=== PATIENT | female | born 1925 | race Caucasian/White ===

== ENCOUNTER 2016-12-05 05:43 | Inpatient (IN) ==
[2016-12-05] MEDS ORDERED: SODIUM CHLORIDE 0.9% 1,000 ML IV STA (06:35)
[2016-12-05 06:43] LABS: Basophils % 0.3 % (0.0-0.8); Eosinophils # 0.2 10*3/uL (0.0-0.87); Eosinophils % 2.1 % (0.00-10.9); Hematocrit 43.2 VOL% (35.7-47.0); Hemoglobin 14.3 GM/DL (12.0-16.0); Immature Granulocytes % 0.4 %; Immature Granulocytes Absolute 0.05 #; Lymphocytes # 1.5 10*3/uL (1.4-4.0); Mean Corpuscular HGB Conc 33.1 GM/DL (32-36); Mean Corpuscular Hemoglobin 29 PG (27-34); Mean Corpuscular Volume 86.6 FL (87-102); Mean Platelet Volume 9.6 FL (9.6-12.0); Monocytes # 0.8 10*3/uL (0.11-0.8); Monocytes % 7.1 % (1.7-12.7); Neutrophils # 8.6 10*3/uL (1.4-7.4); Neutrophils % 77.1 % (38.7-73.9); Platelet Count 249 T/CUMM (130-400); Red Blood Count 4.99 MC/CUMM (3.8-5.5); Red Cell Distribution Width 15.2 % (9.3-17.3); White Blood Count 11.2 T/CUMM (4-12)
[2016-12-05 06:47] LABS: INR 2.2
[2016-12-05 06:53] LABS: PT Patient Result 24.1 SECS
[2016-12-05 07:07] LABS: Lactic Acid 1.2 MMOL/L (0.4-2.0)
[2016-12-05 07:19] LABS: Albumin 3.8 G/DL (3.4-5.0); Bilirubin,Total 1.1 MG/DL (0.2-1.0); Calcium 9.3 MG/DL (8.5-10.1); Osmolality,Calculated 267.2 MOS/KG (273-304); Potassium 3.9 MMOL/L (3.5-5.1); Total Protein 7.5 G/DL (6.4-8.3); Troponin I Only 0.018 NG/ML (0.00-0.045)
[2016-12-05 08:02] LABS: Apearance,Urine Slightly Hazy (Clear); Bacteria,Urine Occasional /HPF (Few); Bilirubin,Urine Negative (Negative); Blood, Urine Negative (Negative); Glucose,Urine (UA) Negative (Negative); Ketones,Urine Negative (Negative); Nitrite,Urine Positive (Negative); Protein,Urine Negative; RBC,Urine 4 /HPF (0-4); Squamous Epithelial Cell,Urine Occasional /HPF (0-10); Urine Color Yellow (Yellow); Urine Specific Gravity 1.005 (1.001-1.035); Urine Urobilinogen < 2.0 EU/DL (0.2-1.0); WBC,Urine 181 /HPF (0-6)
[2016-12-05] MEDS ORDERED: MORPHINE 2 MG/1 ML SYRINGE IV STA (08:34)
[2016-12-05] MEDS ORDERED: MORPHINE 2 MG/1 ML SYRINGE ONE (08:37)
--- NOTE | 2016-12-05 08:38 | CT Report ---
Referring physician: Corky Millan Exam: CT brain without contrast Date: December 05, 2016 Comparison: CT brain without contrast January 05, 2016 Reason: Status post fall, on anticoagulation The patient is an Emergency Department patient on December 05, 2016. Technique: Axial images of the head were obtained without the use of contrast. Total DLP was 1005.1 mGy*cm. Findings: There is mild to moderate generalized cerebral and cerebellar atrophy/volume loss. Areas of hyperattenuation are also again seen within the cerebral white matter bilaterally. This is nonspecific but is most consistent with chronic microvascular ischemic change. The lateral ventricles are mildly prominent but stable, likely secondary to central atrophy/volume loss. No midline shift is present. There is no evidence of recent intracranial hemorrhage, abnormal mass effect or an acute infarction. No acute osseous process is seen. Prominent calcified plaque is noted at the intracranial carotid arteries and vertebral arteries. The mastoid air cells and visualized paranasal sinuses are clear. Impression: 1. No acute intracranial process is identified. 2. Chronic intracranial findings, similar to before. The CT exam was performed using one or more of the following dose reduction techniques: Automated exposure control and adjustment of the mA and/or kV according to patient size. PROCEDURE INTERPRETED AT [facility] DEPARTMENT OF RADIOLOGY Final Report Signed by: Dr. Brit Arzate
--- NOTE | 2016-12-05 09:04 | CT Report ---
Exam: CT lumbar spine without contrast Date: December 05, 2016 Comparison: MRI lumbar spine April 02, 2010 and March 06, 2015; CT abdomen and pelvis March 10, 2013 Reason: Status post fall, back pain, initial encounter Technique: Axial images of the lumbar spine were obtained without the use of contrast. Sagittal reformatted images were also acquired. Total DLP is 556.5 mGy*cm. Findings: There are mild remote compression fractures at L2 and L3. Minimal at most retropulsion is seen at this levels, and these compression fractures were present on the previous MRI of April 02, 2010. There is also minimal height loss at the superior endplate of L1. This appears stable and could represent a minimal remote compression fracture. There is also a mild remote compression fracture of L4 with kyphoplasty/vertebroplasty change. Some of the cement material extends into the anterior epidural region at the L4 level. There is minimal height loss at the superior endplate of L5, which could represent an indeterminate age compression fracture. No significant retropulsion is seen. There is irregularity of the left aspect of the sacrum, which is concerning for a nondisplaced sacral fracture. Similar findings are seen on the prior CT obtained on March 10, 2013, and this is consistent with a remote nondisplaced fracture, possibly an insufficiency fracture. There is multilevel anterior marginal spurring and calcification of the intervertebral discs. Vacuum disc phenomenon is seen at L5-S1. There is grade 1 anterolisthesis at L4-L5 (0.5 cm). No definite pars interarticularis defects are seen at L4, but there may be a developing pars interarticularis defect on the left at L5. There is also mild levoscoliosis at the lumbar spine and probable diffuse demineralization/osteoporosis. Mild degenerative change is noted at the SI joints. At T12-L1, there is mild posterior marginal spurring related to a remote compression fracture of T12 which is at the edge of the field of view. No spinal canal stenosis or neuroforaminal narrowing is seen. At L1-L2, no spinal canal stenosis or neuroforaminal narrowing is identified. At L2-L3, there is a mild diffuse posterior disc bulge, minimal posterior marginal spurring and mild bilateral facet arthropathy. No spinal canal stenosis or neuroforaminal narrowing is seen. At L3-L4, there is a mild diffuse posterior disc bulge, mild posterior marginal spurring and mild bilateral facet arthropathy. There is also cement material within the anterior epidural region at the L4 level. These findings produce mild overall narrowing of the spinal canal but no significant neuroforaminal narrowing. At L4-L5, there is uncovering of the disc, a diffuse posterior disc bulge, ligamentum flavum hypertrophy with calcification and moderate to severe bilateral facet arthropathy. This produces moderate to severe spinal canal stenosis, minimal left neuroforaminal narrowing and mild right neuroforaminal narrowing. At L5-S1, there is a diffuse posterior disc osteophyte complex and mild bilateral facet arthropathy. No spinal canal stenosis is seen, but there is mild right neuroforaminal narrowing. There is prominence calcified plaque at the visualized arteries, and the abdominal aorta is slightly ectatic. The abdominal aorta is only partially visualized on this study. Impression: 1. There are mild remote compression fractures at L2 and L3 and a remote compression fracture with kyphoplasty/vertebroplasty change at L4. There is also a questionable minimal remote compression fracture at the superior endplate of L1. 2. There is minimal height loss of the superior endplate of L5, which could represent a minimal indeterminate age compression fracture. This is difficult to confirm on the previous studies but is subtle finding. 3. Remote nondisplaced fracture of the left sacrum, possibly an insufficiency fracture. 4. Multilevel degenerative change at the lumbar spine as above with moderate to severe spinal canal stenosis at L4-L5. PROCEDURE INTERPRETED AT [facility] DEPARTMENT OF RADIOLOGY Final Report Signed by: Dr. Brit Arzate
[2016-12-05] MEDS ORDERED: cloNIDine 0.1 MG TABLET PO STA (09:26)
[2016-12-05] MEDS ORDERED: cloNIDine 0.1 MG TABLET ONE (09:27)
[2016-12-05] MEDS ORDERED: LEVOFLOXACIN INJ 500 MG in PREMIX 1 EACH IV STA (09:31)
--- NOTE | 2016-12-05 09:36 | Emergency Department Note ---
Tenzin Vu Brooke, am scribing for, and in the presence of, Corky Millan Jr., MD 06:37. Monty Vu Marvin Jr., MD, personally performed the services described in this documentation, ascribed by Sera Dave in my presence, and it is both accurate and complete 653 . Arrival - Arrival Chief Complaint: Fall Stated Complaint: fell yesterday morning ED Nursing Triage Note: Patient to triage via wc. Patient fell yesterday morning in the bathroom. Patient and family thought that she would be ok. Son states that they had a rough night. Patient is complaining of pain all over. patient states she did hit her head on the door. Patient is on warfin. Patient is complaining of a headache. Mode of Arrival: Wheelchair Limitations: No Limitations Source: Patient, Family (Son), RN Notes Reviewed Time Seen by Provider: 12/05/16 06:27 - History of Present Illness HPI Narrative: Patient is a 89 year old female who presents to the ED following a fall that happened yesterday. Patient was in the bathroom when her legs "gave way" and she hit the floor. She is currently complaining of lower back pain. Son says Patient woke him up "moaning" and complaining of "aching all over." She took her pain medication, [place] 7.5, two hours ago. Patient denies any shortness of breath, chest pain, nausea, or vomiting but says she does have a headache. She has had the headache for a couple of days and states that it is located in the middle of her head. She says she had been eating and drinking good. There are no other complaints. Patient has PMHx of CHF, HTN, PA, depression, vertigo, COPD , pneumonia, bladder problems, GERD, osteoporosis, and back/neck problems. Patient does not smoke cigarettes, drink alcohol, or do any drugs. Onset (ago): day(s) (2) Allergies/Adverse Reactions: Allergies Allergy/AdvReac Type Severity Reaction Status Date / Time promethazine Allergy Unknown/Unable Verified 12/05/16 09:17 to obtain cefdinir AdvReac Unknown/Unable Verified 12/05/16 09:17 to obtain Home Medications: Home Medications Medication Instructions Recorded Confirmed Type Cetirizine HCl [ZyrTEC Cap] 10 mg PO DAILY 03/06/15 01/05/16 History Digoxin [Digox] 125 mcg PO DAILY 03/06/15 01/05/16 History Furosemide 20 mg PO DAILY 03/06/15 01/05/16 History HYDROcodone/ACETAMIN 7.5-325 7.5 - 325 mg PO BID PRN 03/06/15 01/05/16 History [[place] 7.5-325] Levothyroxine Sodium 50 mcg PO DAILY 03/06/15 01/05/16 History Meclizine HCl 25 mg PO TID PRN 03/06/15 01/06/16 History Metoprolol Tartrate 50 mg PO DAILY 03/06/15 01/05/16 History Omeprazole 40 mg PO DAILY 03/06/15 01/05/16 History Potassium Chloride 10 meq PO DAILY 03/06/15 01/05/16 History Warfarin Sodium 4 mg PO DAILY 03/06/15 01/05/16 History HYDROcodone/ACETAMIN 10-325 [[place] 1 tablet PO Q6H PRN #0 tablet 03/11/15 Rx 10-325] Pantoprazole Tab [Protonix Tab] 40 mg PO DAILY@0700 tablet 03/11/15 01/05/16 Rx Warfarin [Coumadin] 5 mg PO DAILY@1800 tablet 03/11/15 01/05/16 Rx cloNIDine TAB [Catapres Tab] 0.1 mg PO BID tablet 03/11/15 01/05/16 Rx hydroCHLOROthiazide 12.5 mg PO DAILY #60 capsule 03/11/15 01/05/16 Rx [Hydrochlorothiazide] predniSONE TAB [PredniSONE] 20 mg PO DAILY #7 tablet 03/11/15 01/05/16 Rx Acetaminophen/Caff/Dihydrocod 1 each PO DAILY 01/05/16 01/05/16 History [Trezix 16-320.5-30 mg Capsule] Tramadol HCl [Tramadol Tab] 50 mg PO BID PRN 01/05/16 01/05/16 History Acetaminophen Tab [Tylenol Tab] 650 mg PO DAILY PRN 01/06/16 01/06/16 History Albuterol Sulfate [Albuterol Neb] 2.5 mg RESP TX TID 01/06/16 01/06/16 History Aspirin [Ecotrin] 325 mg PO DAILY 01/06/16 01/06/16 History Ferrous Sulfate 325 mg PO DAILY 01/06/16 01/06/16 History Mirtazapine [Remeron] 15 mg PO BEDTIME 01/06/16 01/06/16 History Ondansetron Tab [Zofran Tab] 4 mg PO DAILY PRN 01/06/16 01/06/16 History Sertraline [Zoloft] 50 mg PO DAILY 01/06/16 01/06/16 History amLODIPine [Norvasc] 10 mg PO DAILY #30 tablet 01/06/16 Rx valACYclovir [Valtrex] 500 mg PO BID 01/06/16 01/06/16 History Review of System - Review of System 12 point system: reviewed and no additional remarkable complaints except as stated - Review of System Constitutional: Absent: fever Respiratory: Absent: respiratory distress Cardiovascular: Absent: chest pain Gastrointestinal: Absent: nausea, vomiting Musculoskeletal: Present: lower back pain Skin: Absent: rash Neurological: Present: headache (middle) Medical,Surgical,& Family Hx - Medical History Cardio: History of: CHF, Hypertension, PA Psychological: History of: Depression Neurology: History of: Vertigo HEENT: History of: Ear Problem Respiratory: History of: COPD, Pneumonia Genitourinary: History of: Bladder Problem Gastrointestinal: History of: GERD Musculoskeletal: History of: Back/Neck Problems, Osteoporosis - Surgical History Cardiac Surgeries: Sugical HX of: Cardiac Surgery (CABG) Neurologic Surgeries: Patient denies: Neurologic Surgery HEENT Surgeries: Surgical HX of: Eye Surgery (Cataracts removed) Abdominal Surgeries: Surgical HX of: Cholecystectomy Reproductive Surgeries: Surgical HX of;: Hysterectomy Patient denies;: Genitourinary Surgery - Family History Family History: Reports;: Family Cancer (Aunt), Family Diabetes (Uncle), Family Heart Disease (Sister) - Social History Smoking Status: Never smoker Frequency of Alcohol Use: None Type of Drug Use: None Exam Physical Examination: General: Well-developed well-nourished, no apparent distress. Head: Normocephalic, atraumatic. Eyes: PERRLA, EOMI. Nose: No obvious acute deformities or discharge. Mouth: No obvious acute injury. Dry mucous membranes Neck: Full range of motion without obvious pain. No midline tender to palpation. Lymphatic: no significant lymphadenopathy noted. Lungs: Clear to auscultation bilaterally, normal and equal air movement bilaterally, no obvious rales or wheezing. Heart: regular rate and rhythm, no obvious mummers. Abdomen: Soft nontender, nondistended, normal active bowel sounds. Skin: No obivous acute lesions noted Musculoskeletal: No gross deformities. Patient says she hurts all over. No focal tenderness noted. Neurological: No focal findings, cranial nerves II through XII grossly normal. Psychiatric: Appropriate mood.. : Deferred Vital Signs: Vital Signs Temperature 98.5 F 12/05/16 06:34 Pulse Rate 100 H 12/05/16 09:15 Respiratory Rate 20 12/05/16 09:15 Blood Pressure 220/134 12/05/16 09:15 O2 Sat by Pulse Oximetry 100 12/05/16 09:15 Course Course Narrative: Differential diagnosis, fall, over anticoagulated, hip injury, head injury, dehydration, electrolyte abnormalities, urinary tract infection - Reevaluation(s) Reevaluation #1: Nurse says patient and family are requesting something for pain. All results are not back but I will give her a low dose of morphine. Time: 08:34 Reevaluation #2: I discussed this patient with the hospitalist service and they have accepted her for admission. Time: 09:29 Results - Labs CBC & BMP: 12/05/16 06:27 12/05/16 06:27 Lab Results: I have reviewed the patients labs Labs: Laboratory Tests 12/05/16 06:27 WBC 11.2 RBC 4.99 Hgb 14.3 Hct 43.2 MCV 86.6 L MCH 29 MCHC 33.1 RDW 15.2 Plt Count 249 MPV 9.6 Neut % (Auto) 77.1 H Lymph % (Auto) 13.0 L Baxter % (Auto) 7.1 Eos % (Auto) 2.1 Baso % (Auto) 0.3 Neut # (Auto) 8.6 H Lymph # (Auto) 1.5 Baxter # (Auto) 0.8 Eos # (Auto) 0.2 Baso # (Auto) 0.0 Immature Gran % 0.4 Nucleated RBC % 0.0 Immature Gran # 0.05 Nucleated RBCs # 0.00 Laboratory Tests 12/05/16 12/05/16 06:27 06:27 INR 2.2 PT Patient/Control Mix 24.1 Lactic Acid 1.2 Laboratory Tests 12/05/16 06:27 Sodium 134 L Potassium 3.9 Chloride 99 Carbon Dioxide 24 Anion Gap 14.9 BUN 10 Creatinine 0.70 GFR Calculation 71 BUN/Creatinine Ratio 14.00 Glucose 118 H Calculated Osmolality 267.2 L Lactic Acid 1.2 Calcium 9.3 Total Bilirubin 1.10 H AST 16 ALT 16 Alkaline Phosphatase 63 Troponin I 0.018 Total Protein 7.5 Albumin 3.8 Globulin 3.7 H Albumin/Globulin Ratio 1.0 L Laboratory Tests 12/05/16 06:27 Urine Color Yellow Urine Appearance Slightly hazy Urine pH 8.0 Ur Specific [place] 1.005 Urine Protein Negative Urine Glucose (UA) Negative Urine Ketones Negative Urine Blood Negative Urine Nitrate Positive H Urine Bilirubin Negative Urine Urobilinogen < 2.0 H Urine Leukocytes Moderate H Urine RBC 4 Urine WBC 181 Ur Squamous Epith Cells Occasional Urine Bacteria Occasional Ur Culture Indicated? Results to follow - EKG EKG results: interpreted by ERMD (Heart rate 96, mostly narrow complex QRS complexes without obvious acute ST changes. Irregular heart rate, no obvious P waves, atrial fibrillation) - Diagnostic Findings Procedure: CT: report reviewed by me, image reviewed by me (CT head/brain wo con : 1. No acute intracranial process is identified. 2. Chronic intracranial findings, similar to before. CT lumbar spine wo con: 1. There are mild remote compression fractures at L2 and L3 and a remote compression fracture with kyphoplasty/vertebroplasty change at L4. There is also a questionable minimal remote compression fracture at the superior endplate of L1. 2. There is minimal height loss of the superior endplate L5, which could represent a minimal indeterminate age compression fracture. This is difficult to confirm on the previous studies but is subtle finding. 3. Remote nondisplaced fracture of the left sacrum, possibly an insufficiency fracture. 4. Multilevel degenerative change at the lumbar spine as above with moderate to severe spinal canal stenosis at L4-L5.), X-ray: image reviewed by me (Pelvis x-ray per me with no obvious acute fractures) Disposition Clinical Impression: Fall, Atrial fibrillation, Lumbar spinal stenosis, Urinary tract infection, Poorly-controlled hypertension Case discussed with: patient, patient's family Disposition: Still a Patient Condition: Stable Time of Disposition: 09:35
[2016-12-05] MEDS ORDERED: LEVOFLOXACIN INJ 100 ML IV ONE (09:37)
--- NOTE | 2016-12-05 09:55 | EKG Report ---
Stationary ECG Study [facility] Test Date: 12/05/2016 7:19:04 AM Pat Name: JOSE FRANK Department: Room: Gender: F [employer]: : [id number] Requested by: Corky Millan Order Number: [id number] Reading MD: ALETHA RESTREPO Intervals [place] Rate: 96 P: 999 VA: 0 QRS: 19 QRSD: 92 T: -30 QT: 360 QTc: 414 Interpretive Statements ATRIAL FIBRILLATION WITH VENTRICULAR PREMATURE COMPLEX MODERATE VOLTAGE CRITERIA FOR LVH, CONSIDER NORMAL VARIANT ABNORMAL RHYTHM ECG Electronically Signed On 12-06-16 19:05:10 CDT by ALETHA RESTREPO [email or web address]
--- NOTE | 2016-12-05 10:00 | XRay Report ---
Referring Physician: Corky Millan Exam: XR pelvis AP 1 view Date: December 05, 2016 at 7:03 AM Reason: Trauma, pelvic pain Comparison: Left hip x-rays August 09, 2010, CT abdomen and pelvis March 10, 2013 Findings: The patient has a known remote nondisplaced fracture of the left sacrum which is better demonstrated on CT. There is minimal degenerative change at both hips, but no acute fracture, dislocation or osseous destructive process is identified at the pelvis or visualized proximal femurs. Note is made of kyphoplasty/vertebroplasty change at L4. There is scattered arterial calcification. Impression: No acute osseous process is identified at the pelvis. Please see the CT lumbar spine study performed on the same day for further details. PROCEDURE INTERPRETED AT [facility] DEPARTMENT OF RADIOLOGY Final Report Signed by: Dr. Brit Arzate
--- NOTE | 2016-12-05 11:30 | Hospitalist History & Physical ---
<Ludmila Dyer - Last Filed: 12/05/16 11:49> Assessment and Plan (1) Atrial fibrillation Status: Acute Assessment and plan: Rate is controlled; Patient currently on coumadin; INR at 2.2. No evidence of bleed per CT; will restart Coumadin. Current Visit: Yes (2) Lumbar spinal stenosis Status: Acute Assessment and plan: Multiple compression fractures noted on CT; many old in age. Will manage pain; consult PT for evaluation. Patient may need swing bed placement for rehab if no improvement in mobility. Current Visit: Yes History of Present Illness Chief complaint: Left hip pain/lower back History of present illness: This is a very pleasant 89 year old female that presented to the ED at [facility] this morning for evaluation of lower back pain and weakness. The patient have a very impressive medical history significant for hypertension, myocardial infarction, overactive bladder, vertigo, GERD, osteoarthritis, and osteoporsis. She has a surgical history of cholecystectomy, cataract removal, coronary artery bypass graft and cardiac catheterization. The patient reported to the ED with her family. She reports that she sustained a fall on yesterday afternoon. She reports that she was in the bathroom and her "legs gave away". She reports that she really had no desire to come to the hospital; however when she woke up the pain was unbearable. In addition, the patient reports a headache to the middle of her x3 day; which was not been relieved by pain medications. Labs were obtained, which was essentially unremarkable. CT Head benign. CT cervical spine revealed multiple compression fractures old in age and left sacral fracture, and degenerative changes to the lumbar spine. After discussion with both and Dr. Latham, the patient will be admitted to the hospitalist service for continuation of care. Home Medications Medication Instructions Recorded Confirmed Type Digoxin [Digox] 125 mcg PO DAILY 03/06/15 12/05/16 History Levothyroxine Sodium 50 mcg PO DAILY 03/06/15 12/05/16 History Meclizine HCl 25 mg PO BID 03/06/15 12/05/16 History Metoprolol Tartrate 50 mg PO DAILY 03/06/15 12/05/16 History Omeprazole 40 mg PO DAILY 03/06/15 12/05/16 History Potassium Chloride 10 meq PO DAILY 03/06/15 12/05/16 History Warfarin Sodium 4 mg PO MOWEFR 03/06/15 12/05/16 History cloNIDine TAB [Catapres Tab] 0.1 mg PO BID tablet 03/11/15 12/05/16 Rx hydroCHLOROthiazide 12.5 mg PO DAILY #60 capsule 03/11/15 12/05/16 Rx [Hydrochlorothiazide] Acetaminophen/Caff/Dihydrocod 1 each PO DAILY 01/05/16 12/05/16 History [Trezix 16-320.5-30 mg Capsule] Tramadol HCl [Tramadol Tab] 50 mg PO BID PRN 01/05/16 12/05/16 History Acetaminophen Tab [Tylenol Tab] 650 mg PO DAILY PRN 01/06/16 12/05/16 History Albuterol Sulfate [Albuterol Neb] 2.5 mg RESP TX TID 01/06/16 12/05/16 History HYDROcodone/ACETAMIN 5-325 [[place] 1 tablet PO BID PRN 12/05/16 12/05/16 History 5-325] Warfarin Sodium [Warfarin Sodium] 3 mg PO SUTUTHSA 12/05/16 12/05/16 History Allergies Allergy/AdvReac Type Severity Reaction Status Date / Time promethazine Allergy Unknown/Unable Verified 12/05/16 09:17 to obtain cefdinir AdvReac Unknown/Unable Verified 12/05/16 09:17 to obtain Medical,Surgical,& Family Hx - Medical History Cardio: History of: CHF, CAD, Hypertension, [place] Psychological: History of: Depression Neurology: History of: Vertigo HEENT: History of: Ear Problem Endocrine: History of: Dyslipidemia Respiratory: History of: COPD, Pneumonia Genitourinary: History of: Bladder Problem, Problems (incontinence) Gastrointestinal: History of: GERD Musculoskeletal: History of: Back/Neck Problems, Osteoporosis - Surgical History Cardiac Surgeries: Sugical HX of: Cardiac Catheterization, Cardiac Surgery (CABG ) Neurologic Surgeries: Patient denies: Neurologic Surgery HEENT Surgeries: Surgical HX of: Eye Surgery (Cataracts removed) Abdominal Surgeries: Surgical HX of: Cholecystectomy, Colonoscopy, EGD Reproductive Surgeries: Surgical HX of;: Hysterectomy Patient denies;: Genitourinary Surgery - Family History Family History: Reports;: Family Cancer (Aunt), Family Diabetes (Uncle), Family Heart Disease (Sister) - Social History Smoking Status: Never smoker Frequency of Alcohol Use: None Type of Drug Use: None 12 point system: reviewed and no additional remarkable complaints except as stated Exam - Constitutional Vitals: Period Temp Pulse Resp BP Sys/Sanchez Pulse Ox Last 24 Hr 98.1 F 87-94 16-20 168-180/99-107 98-99 General appearance: normal weight, no acute distress - Head Head exam: Present: normal inspection, normocephalic, atraumatic - Eye Eye exam: Present: EOMI. Absent: conjunctival injection, nystagmus Pupils: Present: ASHLIE, normal accommodation - ENT ENT exam: Present: normal exam, normal external ear exam, normal oropharynx - Neck Neck exam: Present: normal inspection. Absent: lymphadenopathy, meningismus, tenderness - Respiratory Respiratory exam: Present: clear to auscultation bilaterally. Absent: accessory muscle use, rales, wheezes - Cardiovascular Cardiovascular exam: Present: irregular rhythm (A-fib). Absent: carotid bruit, diastolic murmur, gallop, JVD, rubs, systolic murmur - GI/Abdominal GI/Abdominal exam: Present: normal bowel sounds, soft - Extremities Exam Extremities exam: Present: normal inspection - Back Exam Back exam: Present: other (painful upon movement and gentle palpation) - Neurological Exam Neurological exam: Present: alert, oriented X3 - Psychiatric Psychiatric exam: Present: normal affect, normal mood - Skin Skin exam: Present: normal color, warm, dry Results - Labs CBC & BMP: 12/05/16 06:27 12/05/16 06:27 Lab Results: I have reviewed the past 24 hour labs Quality Measures - VTE Deep Vein Thrombosis/Pulmonary Embolism Present on Admission: No <Hunter Latham - Last Filed: 12/05/16 14:18> Assessment and Plan (1) Back pain Status: Acute Assessment and plan: As noted in the accompanying notes; I totally agree with the plan of management however I am concerned that the acute pain may be poorly controlled if without are anti-inflammatory agent. Unfortunately this lady is on Coumadin we cannot use nonsteroidal anti-inflammatory medications. She will have to resort to use of systemic steroids. I am starting her on Decadron at least for the next 48 hours to be given IV 2 mg IV every 12 hours. She is not a diabetic will continue to keep an eye on the blood sugars. She should be in the hospital for the next 72 hours. I am going to consult the pain clinic people who know how to come and see her was she is here. This current amplitude of pain is acute following a fall that she sustained at home. It will therefore be treated as such. Been on both hydrocodone acetaminophen and tramadol. Long-term use of tramadol does concern me because of neutral and is interested to have with the other opioids but the long stay obvious byproducts in the system. Is notorious to cause some neurologic coordination and ataxia in the elderly. Current Visit: No History of Present Illness History of present illness: Ms. Carpenter is a 89 year old female Exam - Constitutional Vitals: Period Temp Pulse Resp BP Sys/Sanchez Pulse Ox Last 24 Hr 98.1 F 87-94 16-20 168-180/99-107 98-99 Results - Labs CBC & BMP: 12/05/16 06:27 12/05/16 06:27
[2016-12-05] MEDS ORDERED: ACETAMINOPHEN 325 MG TABLET PO PRN (11:54)
[2016-12-05] MEDS ORDERED: ONDANSETRON 4 MG/2 ML VIAL IV PRN (11:54)
[2016-12-05] MEDS ORDERED: DOCUSATE SODIUM 100 MG CAPSULE PO PRN (11:54)
[2016-12-05] MEDS: SODIUM CHLORIDE 0.9% 1,000 ML IV SCH ×2 (12:39→21:26)
[2016-12-05] MEDS ORDERED: DEXAMETHASONE 4 MG/1 ML VIAL IV ONE (14:30)
[2016-12-05] MEDS ORDERED: WARFARIN 2 MG TABLET ONE (17:59)
[2016-12-05] MEDS ORDERED: WARFARIN 3 MG TABLET PO SCH (18:00)
[2016-12-05] MEDS: ALBUTEROL 2.5 MG/3 ML NEB RESP TX SCH (19:09)
[2016-12-05] MEDS: cloNIDine 0.1 MG TABLET PO SCH (21:18)
[2016-12-05] MEDS: oxyCODONE/ACETAMINOPHEN 5-325 MG TABLET PO PRN (21:18)
[2016-12-06] MEDS: DEXAMETHASONE 4 MG/1 ML VIAL IV SCH ×2 (04:16→14:03)
[2016-12-06] MEDS: SODIUM CHLORIDE 0.9% 1,000 ML IV SCH ×2 (04:17→14:03)
[2016-12-06] MEDS: LEVOTHYROXINE 50 MCG TABLET PO SCH (06:21)
--- NOTE | 2016-12-06 06:54 | Pain Management Consult Note ---
Assessment and Plan (1) Compression fracture Status: Acute Assessment and plan: Multiple compression fractures seen in the lumbar spine. We need to obtain MRI of the lumbar spine today and we need to continue holding her blood thinner so that we can do a possible kyphoplasty later this week Current Visit: Yes History of Present Illness Chief complaint: Severe lower back pain History of present illness: Ms. Carpenter is a 89 year old female Patient is well-known to me and I performed previous L4 kyphoplasty on her with complete resolution of her pain systems symptoms in the past. Patient has now admitted with seems like acute compression fracture. CT scan of the lumbar spine shows multiple fractures but age is indeterminate and I believe an MRI of the lumbar spine is needed Home Medications Medication Instructions Recorded Confirmed Type Digoxin [Digox] 125 mcg PO DAILY 03/06/15 12/05/16 History Levothyroxine Sodium 50 mcg PO DAILY 03/06/15 12/05/16 History Meclizine HCl 25 mg PO BID 03/06/15 12/05/16 History Metoprolol Tartrate 50 mg PO DAILY 03/06/15 12/05/16 History Omeprazole 40 mg PO DAILY 03/06/15 12/05/16 History Potassium Chloride 10 meq PO DAILY 03/06/15 12/05/16 History Warfarin Sodium 4 mg PO MOWEFR 03/06/15 12/05/16 History cloNIDine TAB [Catapres Tab] 0.1 mg PO BID tablet 03/11/15 12/05/16 Rx hydroCHLOROthiazide 12.5 mg PO DAILY #60 capsule 03/11/15 12/05/16 Rx [Hydrochlorothiazide] Acetaminophen/Caff/Dihydrocod 1 each PO DAILY 01/05/16 12/05/16 History [Trezix 16-320.5-30 mg Capsule] Tramadol HCl [Tramadol Tab] 50 mg PO BID PRN 01/05/16 12/05/16 History Acetaminophen Tab [Tylenol Tab] 650 mg PO DAILY PRN 01/06/16 12/05/16 History Albuterol Sulfate [Albuterol Neb] 2.5 mg RESP TX TID 01/06/16 12/05/16 History HYDROcodone/ACETAMIN 5-325 [[place] 1 tablet PO BID PRN 12/05/16 12/05/16 History 5-325] Warfarin Sodium [Warfarin Sodium] 3 mg PO SUTUTHSA 12/05/16 12/05/16 History Allergies Allergy/AdvReac Type Severity Reaction Status Date / Time promethazine Allergy Unknown/Unable Verified 12/05/16 09:17 to obtain cefdinir AdvReac Unknown/Unable Verified 12/05/16 09:17 to obtain Medical,Surgical,& Family Hx - Medical History Cardio: History of: CHF, CAD, Hypertension, [place] Psychological: History of: Depression Neurology: History of: Vertigo HEENT: History of: Ear Problem Endocrine: History of: Dyslipidemia Respiratory: History of: COPD, Pneumonia Genitourinary: History of: Bladder Problem, Problems (incontinence) Gastrointestinal: History of: GERD Musculoskeletal: History of: Back/Neck Problems, Osteoporosis - Surgical History Cardiac Surgeries: Sugical HX of: Cardiac Catheterization, Cardiac Surgery (CABG ) Neurologic Surgeries: Patient denies: Neurologic Surgery HEENT Surgeries: Surgical HX of: Eye Surgery (Cataracts removed) Abdominal Surgeries: Surgical HX of: Cholecystectomy, Colonoscopy, EGD Reproductive Surgeries: Surgical HX of;: Hysterectomy Patient denies;: Genitourinary Surgery - Family History Family History: Reports;: Family Cancer (Aunt), Family Diabetes (Uncle), Family Heart Disease (Sister) - Social History Smoking Status: Never smoker Frequency of Alcohol Use: None Type of Drug Use: None Quality Measures - VTE Contraindication to Pharmacological VTE Prophylaxis: Already on Theraputic Agent , No Prophylaxis Needed 12 point system: reviewed and no additional remarkable complaints except as stated Exam - Constitutional Vitals: Period Temp Pulse Resp BP Sys/Sanchez Pulse Ox Last 24 Hr 96.8 F-98.1 F 67-94 16-21 137-185/79-107 97-99 General appearance: normal weight - Head Head exam: Present: normal inspection - Eye Eye exam: Present: EOMI Pupils: Present: ASHLIE - ENT ENT exam: Present: normal exam Ear exam: Present: intact Mouth exam: Present: normal external inspection - Neck Neck exam: Present: normal inspection - Respiratory Respiratory exam: Present: clear to auscultation bilaterally - Cardiovascular Cardiovascular exam: Present: RRR - Extremities Exam Extremities exam: Present: normal inspection - Back Exam Back exam: Present: vertebral tenderness - Neurological Exam Neurological exam: Present: abnormal gait - Skin Skin exam: Present: normal color Results - Labs CBC & BMP: 12/05/16 06:27 05/07/17 06:27 Lab Results: I have reviewed the past 24 hour labs
[2016-12-06] MEDS: ALBUTEROL 2.5 MG/3 ML NEB RESP TX SCH ×3 (07:07→19:04)
[2016-12-06] MEDS: PANTOPRAZOLE 40 MG TABLET PO SCH (08:47)
[2016-12-06] MEDS: METOPROLOL TARTRATE 50 MG TABLET PO SCH (08:47)
[2016-12-06] MEDS: POTASSIUM CHLORIDE 10 MEQ TABLET PO SCH (08:47)
[2016-12-06] MEDS: cloNIDine 0.1 MG TABLET PO SCH ×2 (08:47→20:40)
[2016-12-06] MEDS: DIGOXIN 0.125 MG TABLET PO SCH (08:47)
[2016-12-06] MEDS ORDERED: hydroCHLOROthiazide 12.5 MG CAPSULE PO SCH (09:00)
--- NOTE | 2016-12-06 12:26 | Hospitalist Progress Note ---
Assessment and Plan (1) Urinary tract infection Status: Acute Assessment and plan: Urine culture with gram-negative rods. Start Bactrim. Current Visit: Yes Qualifiers: Urinary tract infection type: acute cystitis Hematuria presence: without hematuria Qualified Code(s): N30.00 - Acute cystitis without hematuria (2) Compression fracture Status: Acute Assessment and plan: Secondary to fall at home yesterday. Follow-up pain management consult and MRI lumbar spine today. Coumadin held. Current Visit: Yes (3) Sacral fracture, closed Status: Acute Assessment and plan: Suspected to be insufficiency fracture related to fall. Current Visit: Yes Qualifiers: Encounter type: initial encounter (4) COPD (chronic obstructive pulmonary disease) Status: Chronic Current Visit: No (5) Hypertension Status: Chronic Current Visit: No Qualifiers: Hypertension type: essential hypertension Qualified Code(s): I10 - Essential (primary) hypertension (6) Atrial fibrillation Status: Chronic Assessment and plan: Anticoagulated with Coumadin. INR 2.2. Rate controlled. Current Visit: No Qualifiers: Atrial fibrillation type: chronic Qualified Code(s): I48.2 - Chronic atrial fibrillation (7) Fall Status: Acute Assessment and plan: Patient reports a fall yesterday at home in her bathroom. This is likely the cause of her acute compression fracture as well as back pain. Current Visit: Yes Qualifiers: Encounter type: initial encounter Qualified Code(s): W19.XXXA - Unspecified fall, initial encounter (8) Lumbar spinal stenosis Status: Chronic Current Visit: Yes Hospitalist: Subjective Interval history: Patient seen and examined. No acute events overnight. Case discussed with nursing staff. Labs reviewed. History and physical and pain management consult reviewed. Patient complains of continued pain in her back and hip. Hip x-ray without significant fracture. She was noted to have sacral fracture on the CT of the lumbar spine. She is being worked up for new acute on chronic compression fractures. MRI scheduled for today. Coumadin held for possible kyphoplasty. Exam - Constitutional Vitals: Period Temp Pulse Resp BP Sys/Sanchez Pulse Ox Last 24 Hr 97 F-97.8 F 67-88 16-21 139-186/79-91 92-99 Exam: Constitutional System: Mild distress. No tremulousness. Head: Normocephalic, atraumatic. Ears, Nose and Throat System: No pain or tenderness. No epistaxis or discharge Eyes System: Pupils equal, round, and reactive. Extraocular muscles intact. Neck: Supple, without adenopathy, No jugular venous distention. No thyromegaly, neck mass, or prior surgery apparent. Respiratory System: Chest clear to auscultation. Cardiovascular System: Heart with regular rate and rhythm. No murmur. GI System: Abdomen soft, nontender. Normo active bowel sounds present. Musculoskeletal System: limbs with no pedal edema. Full distal pulses. Neurological System: No discernable sensory deficit. No aphasia Psychiatric System: Conversation is rational Results - Labs CBC & BMP: 12/05/16 06:27 12/05/16 06:27 Lab Results: I have reviewed the past 24 hour labs - Diagnostic Findings Procedure: CT: image reviewed by me, report reviewed by me, MRI: pending, X-ray : image reviewed by me, report reviewed by me Quality Measures - VTE Contraindication to Pharmacological VTE Prophylaxis: Already on Theraputic Agent , No Prophylaxis Needed
--- NOTE | 2016-12-06 13:21 | Magnetic Resonance Report ---
Exam: MR lumbar spine wo con Date: 12/06/2016 6:54 AM Comparison: 03/06/2015, CT lumbar spine 12/05/2016 Indication: Severe back pain, DDD, prior vertebral fracture, fall, back trauma Technique:[Multiple acquisitions were obtained including sagittal T1, T2, STIR, and axial T1 and T2 scans. Scans were obtained on a 1.5 Kori magnet.] Findings: 6 mm anterolisthesis of L4 in relationship to L5. Chronic L4 compression fracture with kyphoplasty. Additional chronic compression fractures of T12, L2, and L3. Interval compression fracture of L1 with fracture lines identifiable and associated minimal marrow edema and volume loss. No significant retropulsion of the vertebral body into the bony canal at this level. Possible additional chronic left sacral fracture. Diffuse disc degeneration. The disc spaces are as follows: L1-L2: Diffuse osteophyte/disc complex which compresses the thecal sac. No spinal stenosis or foraminal stenosis. L2-L3: Diffuse osteophyte/disc complex which compresses the thecal sac. Minimal spinal stenosis with minimal bilateral foraminal stenosis. Degenerative changes in the facet joints. L3-L4: Diffuse osteophyte/disc complex which compresses the thecal sac. Minimal spinal stenosis and bilateral foraminal stenosis. Degenerative changes in the facet joints. L4-L5: Diffuse osteophyte/disc complex which compresses the thecal sac. Hypertrophy of the ligamentum flavum with moderately severe spinal stenosis and moderate bilateral foraminal stenosis. Degenerative changes in the facet joints. L5-S1: Diffuse osteophyte/disc complex which does not significantly compress the thecal sac. No spinal stenosis with minimal bilateral foraminal stenosis. Degenerative changes in the facet joints. Impression: Motion artifact. Chronic L4 compression fracture with prior kyphoplasty. Additional chronic T12, L2, L3, and left sacral fractures. Interval compression fracture of L1. There is minimal marrow edema noted at the level of the fracture lines with only minimal compression of the vertebra. Additional multilevel DDD as above noted with residual grade 1 spondylolisthesis at L4-L5. This report was called patient's nurse, Kyung at 1:15 PM on 12/06/2016. Critical test results PROCEDURE INTERPRETED AT [facility] DEPARTMENT OF RADIOLOGY Final Report Signed by: Dr. Suze Guerrero
--- NOTE | 2016-12-06 13:27 | Magnetic Resonance Report ---
Exam: MR thoracic spine wo con Date: 12/06/2016 6:55 AM Comparison: MRI lumbar spine 03/06/2015 Indication: Severe back pain after fall, back trauma, history of prior compression fracture Technique:[Multiple acquisitions were obtained including sagittal T1, T2, STIR, and axial T1 and T2 scans. Scans were obtained on 1.5 Kori magnet.] Findings: Scans are degraded by motion artifact. Mild kyphotic deformity the thoracic spine. Chronic T3, T12, L2, L3, and L4 compression fractures with prior L4 kyphoplasty. More acute L1 compression fracture with fracture lines identifiable and associated minimal marrow edema. No significant retropulsion of this vertebral body into the bony canal. Stable retropulsion of T12 vertebra into the bony canal. Diffuse disc degeneration with degenerative changes. At T11-T12, diffuse osteophyte/disc complex which compresses the thecal sac. At T12-L1: Diffuse osteophyte/disc complex which compresses the thecal sac. No significant spinal stenosis. No definite spinal cord pathology is identified. Impression: Motion artifact. Chronic T3, T12, L2, L3, and L4 compression fractures with prior L4 kyphoplasty. More acute L1 compression fracture with fracture lines identifiable and minimal marrow edema and compression of the vertebra. Additional DDD as above noted. This report was called to the patient's nurse, Kyung at 1:15 PM on 12/06/2016. Critical test results PROCEDURE INTERPRETED AT [facility] DEPARTMENT OF RADIOLOGY Final Report Signed by: Dr. Suze Guerrero
[2016-12-06] MEDS: SULFAMETHOX/TRIMETHOPRIM 800-160 MG TABLET PO SCH ×2 (14:03→20:40)
[2016-12-06 15:19] LABS: INR 1.5; PT Patient Result 16.1 SECS
[2016-12-06] MEDS ORDERED: WARFARIN 4 MG TABLET PO SCH (18:00)
[2016-12-06] MEDS: oxyCODONE/ACETAMINOPHEN 5-325 MG TABLET PO PRN (20:39)
[2016-12-07] MEDS: DEXAMETHASONE 4 MG/1 ML VIAL IV SCH ×2 (02:41→15:34)
[2016-12-07] MEDS: SODIUM CHLORIDE 0.9% 1,000 ML IV SCH (04:31)
[2016-12-07 05:27] LABS: INR 1.5; PT Patient Result 16.5 SECS
[2016-12-07 05:52] LABS: Calcium 8.3 MG/DL (8.5-10.1); Magnesium 2.1 MG/DL (1.8-2.4); Osmolality,Calculated 277.5 MOS/KG (273-304); Potassium 4.2 MMOL/L (3.5-5.1)
--- NOTE | 2016-12-07 05:52 | Pain Management Progress Note ---
Assessment and Plan (1) Compression fracture Status: Acute Assessment and plan: Multiple compression fractures seen in the lumbar spine. We need to obtain MRI of the lumbar spine today and we need to continue holding her blood thinner so that we can do a possible kyphoplasty later this week 12/07 proceed today with L1 kyphoplasty Current Visit: Yes Pain - Subjective Interval history: Mri ls spine and t s spine was reviewed and it shows acute pathologic L1 compression fracture. Patient is in severe pain and needs to proceed with kyphoplasty due to failure of conservative measures. I will get her scheduled for L1 kyphoplasty this afternoon around 3:00 patient INR is 1.5 and as long as we do not give her any Coumadin before the procedure should be okay Exam - Constitutional Vitals: Period Temp Pulse Resp BP Sys/Sanchez Pulse Ox Last 24 Hr 97 F-98.7 F 69-81 17-20 136-191/70-88 92-99 General appearance: severe distress - Head Head exam: Present: normal inspection - Eye Eye exam: Present: EOMI Pupils: Present: ASHLIE - ENT ENT exam: Present: normal exam Ear exam: Present: intact Mouth exam: Present: normal external inspection - Neck Neck exam: Present: normal inspection - Respiratory Respiratory exam: Present: clear to auscultation bilaterally - Cardiovascular Cardiovascular exam: Present: RRR - GI/Abdominal GI/Abdominal exam: Present: normal bowel sounds - Extremities Exam Extremities exam: Present: normal inspection - Back Exam Back exam: Present: vertebral tenderness - Neurological Exam Neurological exam: Present: alert, oriented X3, abnormal gait - Skin Skin exam: Present: normal color Results - Labs CBC & BMP: 12/05/16 06:27 12/05/16 06:27 Lab Results: I have reviewed the past 24 hour labs Quality Measures - VTE Contraindication to Pharmacological VTE Prophylaxis: Already on Theraputic Agent , No Prophylaxis Needed
[2016-12-07] MEDS: ALBUTEROL 2.5 MG/3 ML NEB RESP TX SCH ×3 (06:50→20:38)
[2016-12-07] MEDS: DIGOXIN 0.125 MG TABLET PO SCH (08:38)
[2016-12-07] MEDS: cloNIDine 0.1 MG TABLET PO SCH ×2 (08:38→21:55)
[2016-12-07] MEDS: METOPROLOL TARTRATE 50 MG TABLET PO SCH (08:38)
[2016-12-07] MEDS: PANTOPRAZOLE 40 MG TABLET PO SCH (08:39)
[2016-12-07] MEDS: LEVOTHYROXINE 50 MCG TABLET PO SCH (08:39)
[2016-12-07] MEDS: SULFAMETHOX/TRIMETHOPRIM 800-160 MG TABLET PO SCH ×2 (08:39→21:55)
[2016-12-07] MEDS: POTASSIUM CHLORIDE 10 MEQ TABLET PO SCH (08:39)
[2016-12-07] MEDS: oxyCODONE/ACETAMINOPHEN 5-325 MG TABLET PO PRN (08:51)
[2016-12-07] MEDS ORDERED: ceFAZolin 2,000 MG in PREMIX 1 EACH IV ONE (09:00)
[2016-12-07] MEDS ORDERED: TISSUE ADHESIVE 1 EACH APPLICATOR TOP ONE (14:49)
[2016-12-07] MEDS ORDERED: ceFAZolin 1,000 MG VIAL ONE (14:49)
[2016-12-07] MEDS ORDERED: DEXAMETHASONE 4 MG/1 ML VIAL ONE (14:50)
[2016-12-07] MEDS ORDERED: ONDANSETRON 4 MG/2 ML VIAL ONE (15:27)
--- NOTE | 2016-12-07 15:48 | Operative Note ---
Date of procedure: 12/07/16 Pre-op diagnosis: Acute L1 pathologic compression fracture Post-op diagnosis: same Procedure: Procedure was L1 kyphoplasty under fluoroscopic guidance with MAC anesthesia Patient was taken to the operating room placed prone on the OR table. MAC anesthesia and Ancef 2 g were given. Sterile prep and drape was done a formal timeout was called The right L1 pedicle was identified under fluoroscopic guidance local infiltration was 1% lidocaine 5 cc. Skin incision was made 14-gauge needle. Patient anterior one third of the L1 vertebral body. Bone cement was mixed and 9 cc of cement was placed L1 vertebral body with no leakage into the spinal epidural space. Position confirmed in multiple AP and lateral views needle removed intact skin incision closed with liquid adhesive and Steri-Strips and sterile dressings applied. Patient was awakened from anesthesia and taken recovery room in stable fashion Anesthesia: MAC Surgeon / Physician: Stephany Wynne Estimated blood loss: none Specimens: none sent Condition: stable Disposition: floor Results - Labs CBC & BMP: 12/05/16 06:27 12/07/16 04:15 Discharge Plan - Discharge Medications No Action Warfarin Sodium 4 mg PO MOWEFR Potassium Chloride 10 meq PO DAILY Omeprazole 40 mg PO DAILY Metoprolol Tartrate 50 mg PO DAILY Meclizine HCl 25 mg PO BID Levothyroxine Sodium 50 mcg PO DAILY Digoxin [Digox] 125 mcg PO DAILY cloNIDine TAB [Catapres Tab] 0.1 mg PO BID tablet hydroCHLOROthiazide [Hydrochlorothiazide] 12.5 mg PO DAILY #60 capsule Acetaminophen/Caff/Dihydrocod [Trezix 16-320.5-30 mg Capsule] 1 each PO DAILY Tramadol HCl [Tramadol Tab] 50 mg PO BID PRN PRN Reason: Pain Albuterol Sulfate [Albuterol Neb] 2.5 mg RESP TX TID Acetaminophen Tab [Tylenol Tab] 650 mg PO DAILY PRN PRN Reason: Pain HYDROcodone/ACETAMIN 5-325 [[place] 5-325] 1 tablet PO BID PRN PRN Reason: Pain Warfarin Sodium [Warfarin Sodium] 3 mg PO SUTUTHSA - Follow Up or Referral - Forms/Instructions
[2016-12-07] MEDS ORDERED: fentaNYL 100 MCG/2 ML VIAL ONE (15:59)
[2016-12-07] MEDS ORDERED: MIDAZOLAM 2 MG/2 ML VIAL ONE (15:59)
--- NOTE | 2016-12-07 16:42 | Hospitalist Progress Note ---
Assessment and Plan (1) Urinary tract infection Status: Acute Assessment and plan: E. coli in urine sensitive to Bactrim. Current Visit: Yes Qualifiers: Urinary tract infection type: acute cystitis Hematuria presence: without hematuria Qualified Code(s): N30.00 - Acute cystitis without hematuria (2) Compression fracture Status: Acute Assessment and plan: Secondary to fall at home yesterday. Pain management consult noted and MRI lumbar spine findings noted. Coumadin held in anticipation of kyphoplasty today. Resume Coumadin tonight Current Visit: Yes (3) Sacral fracture, closed Status: Acute Assessment and plan: Suspected to be insufficiency fracture related to fall. Current Visit: Yes Qualifiers: Encounter type: initial encounter (4) COPD (chronic obstructive pulmonary disease) Status: Chronic Current Visit: No (5) Hypertension Status: Chronic Current Visit: No Qualifiers: Hypertension type: essential hypertension Qualified Code(s): I10 - Essential (primary) hypertension (6) Atrial fibrillation Status: Chronic Assessment and plan: Anticoagulated with Coumadin. Rate controlled. Resume anticoagulation after kyphoplasty. Current Visit: No Qualifiers: Atrial fibrillation type: chronic Qualified Code(s): I48.2 - Chronic atrial fibrillation (7) Fall Status: Acute Assessment and plan: Patient reports a fall yesterday at home in her bathroom. This is likely the cause of her acute compression fracture as well as back pain. Current Visit: Yes Qualifiers: Encounter type: initial encounter Qualified Code(s): W19.XXXA - Unspecified fall, initial encounter (8) Lumbar spinal stenosis Status: Chronic Current Visit: Yes Hospitalist: Subjective Interval history: Patient seen and examined. No acute events overnight. Case discussed with nursing staff. Labs reviewed. MRI shows acute compression fracture and the patient is scheduled for kyphoplasty today. Urine culture reveals E. coli sensitive to Bactrim which was started yesterday. Her INR is 1.5 and she is ready for her kyphoplasty with Dr. Wynne. We will resume Coumadin later this evening in anticipation of her discharge home tomorrow. She has agreed to home health with [facility]. Exam - Constitutional Vitals: Period Temp Pulse Resp BP Sys/Sanchez Pulse Ox Last 24 Hr 97.4 F-98.7 F 55-94 16-25 141-198/65-94 96-100 Exam: Constitutional System: Mild distress. No tremulousness. Head: Normocephalic, atraumatic. Ears, Nose and Throat System: No pain or tenderness. No epistaxis or discharge Eyes System: Pupils equal, round, and reactive. Extraocular muscles intact. Neck: Supple, without adenopathy, No jugular venous distention. No thyromegaly, neck mass, or prior surgery apparent. Respiratory System: Chest clear to auscultation. Cardiovascular System: Heart with regular rate and rhythm. No murmur. GI System: Abdomen soft, nontender. Normo active bowel sounds present. Musculoskeletal System: limbs with no pedal edema. Full distal pulses. Neurological System: No discernable sensory deficit. No aphasia Psychiatric System: Conversation is rational Results - Labs CBC & BMP: 12/05/16 06:27 12/07/16 04:15 Lab Results: I have reviewed the past 24 hour labs - Diagnostic Findings Procedure: MRI: report reviewed by me Quality Measures - VTE Contraindication to Pharmacological VTE Prophylaxis: Already on Theraputic Agent , No Prophylaxis Needed
--- NOTE | 2016-12-07 18:10 | Anesthesia Post-Op ---
Anesthesia Post OP - Post Ansesthetic Evaluation Patient seen in post op: Yes Resp: within normal limits CV: within normal limits Mental: within normal limits Temp: within normal limits Tplt-It-Acefvyrzl: within normal limits Nausea and Vomiting: within normal limits Pain: within normal limits
--- NOTE | 2016-12-08 06:01 | Pain Management Progress Note ---
Assessment and Plan (1) Compression fracture Status: Acute Assessment and plan: Multiple compression fractures seen in the lumbar spine. We need to obtain MRI of the lumbar spine today and we need to continue holding her blood thinner so that we can do a possible kyphoplasty later this week 12/07 proceed today with L1 kyphoplasty 12/08 okay for discharge to home when felt appropriate by primary and follow-up with me as an outpatient Current Visit: Yes Pain - Subjective Interval history: The patient is status post successful L1 kyphoplasty by me yesterday. Patient reports the pain is significantly better and she is ready to go home. Patient can safely restart the Coumadin and is okay for discharge and okay with primary Exam - Constitutional Vitals: Period Temp Pulse Resp BP Sys/Sanchez Pulse Ox Last 24 Hr 97.2 F-98.4 F 55-94 16-20 109-198/63-94 95-100 General appearance: no acute distress - Head Head exam: Present: normal inspection - Eye Eye exam: Present: EOMI Pupils: Present: ASHLIE - ENT ENT exam: Present: normal exam Ear exam: Present: intact Mouth exam: Present: normal external inspection - Neck Neck exam: Present: normal inspection - Respiratory Respiratory exam: Present: clear to auscultation bilaterally - Cardiovascular Cardiovascular exam: Present: RRR - GI/Abdominal GI/Abdominal exam: Present: normal bowel sounds - Extremities Exam Extremities exam: Present: normal inspection - Back Exam Back exam: Present: normal inspection - Neurological Exam Neurological exam: Present: alert, oriented X3 - Skin Skin exam: Present: normal color Results - Labs CBC & BMP: 12/05/16 06:27 12/07/16 04:15 Lab Results: I have reviewed the past 24 hour labs Quality Measures - VTE Contraindication to Pharmacological VTE Prophylaxis: Already on Theraputic Agent , No Prophylaxis Needed
[2016-12-08] MEDS: LEVOTHYROXINE 50 MCG TABLET PO SCH (07:08)
[2016-12-08] MEDS: ALBUTEROL 2.5 MG/3 ML NEB RESP TX SCH ×2 (07:18→14:19)
[2016-12-08] MEDS ORDERED: ENOXAPARIN 60 MG/0.6 ML SYRINGE SUBCUT ONE (07:55)
[2016-12-08] MEDS: oxyCODONE/ACETAMINOPHEN 5-325 MG TABLET PO PRN (09:05)
[2016-12-08] MEDS: METOPROLOL TARTRATE 50 MG TABLET PO SCH (09:06)
[2016-12-08] MEDS: POTASSIUM CHLORIDE 10 MEQ TABLET PO SCH (09:06)
[2016-12-08] MEDS: PANTOPRAZOLE 40 MG TABLET PO SCH (09:06)
[2016-12-08] MEDS: SULFAMETHOX/TRIMETHOPRIM 800-160 MG TABLET PO SCH (09:06)
[2016-12-08] MEDS: cloNIDine 0.1 MG TABLET PO SCH (09:06)
[2016-12-08] MEDS: DIGOXIN 0.125 MG TABLET PO SCH (09:06)
--- NOTE | 2016-12-08 16:10 | Discharge Summary ---
<Yousif Beasley - Last Filed: 12/08/16 16:00> Hospital Course - Hospital Course Hospital Course: This is an 89-year-old female who was admitted through the [place] ED on 2016 for further evaluation of lower back pain and weakness. She was admitted with lumbar spinal stenosis and atrial fibrillation. CT of the cervical spine revealed multiple compression fractures old in age, left sacral fracture and degenerative changes to the lumbar spine. Pain management was consulted. MRI of the spine reveal acute L1 compression fracture with fraction was identified with associated minimal marrow edema. Coumadin was held in anticipation for kyphoplasty. On 12/07/2016, Dr. Wynne performed an L1 kyphoplasty under fluoroscopic guidance with MAC anesthesia. Patient tolerated procedure well and was moved back to telemetry in stable condition. During her hospital stay, the patient was also treated for urinary tract infection with Bactrim as well as management of the chronic conditions. Her hospitalization was relatively uncomplicated highlighted by kyphoplasty and she is stable for discharge at this time. Upon discharge, the patient will need to follow-up with Dr. Millan outpatient within 2 weeks. Patient will need to receive home health with PT. This has been discussed with senior case manager Kirill Howard. Additional discharge instructions to follow per Dr. Singh. - Time spent with patient Time with patient DS: Greater than 30 minutes Specialty Discharge - Follow Up or Referrals Follow up with: Stephany Wynne MD [Physician] - 12/24/16 9:45 am Discharge Plan - Discharge Data Disposition: Home Health Service - Discharge Medications New Sulfameth/Trimeth 800-160 Tab [Bactrim DS Tab] 1 tablet PO BID #6 tablet Continue Warfarin Sodium 4 mg PO MOWEFR Potassium Chloride 10 meq PO DAILY Omeprazole 40 mg PO DAILY Metoprolol Tartrate 50 mg PO DAILY Meclizine HCl 25 mg PO BID Levothyroxine Sodium 50 mcg PO DAILY Digoxin [Digox] 125 mcg PO DAILY cloNIDine TAB [Catapres Tab] 0.1 mg PO BID tablet hydroCHLOROthiazide [Hydrochlorothiazide] 12.5 mg PO DAILY #60 capsule Acetaminophen/Caff/Dihydrocod [Trezix 16-320.5-30 mg Capsule] 1 each PO DAILY Tramadol HCl [Tramadol Tab] 50 mg PO BID PRN PRN Reason: Pain Albuterol Sulfate [Albuterol Neb] 2.5 mg RESP TX TID Acetaminophen Tab [Tylenol Tab] 650 mg PO DAILY PRN PRN Reason: Pain HYDROcodone/ACETAMIN 5-325 [[place] 5-325] 1 tablet PO BID PRN PRN Reason: Pain Warfarin Sodium 3 mg PO SUTUTHSA - Follow Up or Referral Follow Up: Stephany Wynne MD [Physician] - 12/24/16 9:45 am - Forms/Instructions Exam - Constitutional Vitals: Period Temp Pulse Resp BP Sys/Sanchez Pulse Ox Last 24 Hr 97.2 F-98.7 F 64-88 16-22 109-164/63-100 95-99 Discharge Results Procedures and tests throughout hospitalization: Pending Orders 12/07/16 XR spine 1V Routine DS: Provider Date of admission: 12/05/16 09:54 Primary care physician: Kraig Donovan MD Attending physician on admission: Hunter Latham MD Consults: 12/05/16 11:57 Consult to Pharmacy [CONS] Routine Reason for Pharmacy Consult: Adjust Meds Renal Funct 12/05/16 14:12 Consult to Physician [CONS] Routine Comment: Consulting Provider: Stephany Wynne When should Consulting Provider be notified: In am Consult to Specialist Group: Pain Management Person Notified: ANDREZ Date Notified: 12/06/16 Time Notified: 08:15 12/07/16 11:34 Consult to Case Mgmt/Social Srvs [CONS] Routine Reason for Case Mgmt/Social Srvs: Home Health Discharging clinician: Yousif SOLARES Expected date of discharge: 12/08/16 <Edwina Singh - Last Filed: 12/08/16 16:42> Hospital Course - Hospital Course Hospital Course: I have personally seen and examined this patient today. I agree with the above note as prepared by the advanced practice provider. I agree with the assessment and plan. Case discussed with the patient's son at the bedside. She given for Bactrim for treatment of urinary tract infection for 3 more days. The patient reports that she has [place] at home prescribed by Dr. Call dose 7.5/325. She does not want to take Percocet. She also has Ultram. No new pain medications were prescribed. Patient instructed to follow-up with primary care physician Dr. Call and Dr. Wynne for pain management. Home health has been set up with [facility]. Patient has reached maximal improvement from this inpatient hospitalization. She remains a full code. Her son is her healthcare surrogate. Her medications were reviewed and reconciled. - Time spent with patient Time with patient DS: Greater than 30 minutes (Total discharge time for this patient, including [id number] time, clinical documentation, medication reconciliation, and discharge planning was 43 minutes.) Diagnosis - Discharge Diagnosis (1) Urinary tract infection Status: Acute (2) Compression fracture Status: Acute (3) Sacral fracture, closed Status: Acute (4) COPD (chronic obstructive pulmonary disease) Status: Chronic (5) Hypertension Status: Chronic (6) Atrial fibrillation Status: Chronic (7) Fall Status: Acute (8) Lumbar spinal stenosis Status: Chronic Discharge Plan - Discharge Data Condition at Discharge: Stable Discharge Diet: advance to your usual diet Activity: as per physical therapy Hygiene: no restrictions
[2016-12-08 16:50] VITALS: BP 168/78
--- NOTE | 2016-12-08 17:08 | XRay Report ---
XR spine 1V Indication: Kyphoplasty. Fluoroscopy spine: Series of images, 6 total, fluoroscopy time 67 seconds, show kyphoplasty near the thoracolumbar junction. Level is labeled as L1 on the study but no references to confirm this level. Impression: Presumed satisfactory imaging for kyphoplasty thoracolumbar junction region. PROCEDURE INTERPRETED AT [facility] DEPARTMENT OF RADIOLOGY Final Report Signed by: Wero Alvarenga M.D.
== END 2016-12-08 17:39 | disposition home health service (06) | DRG 516 ==
LOC: N.ED 05:43 → SUATTDRO 09:54 → N.EDINP 09:54 → N.TELES 10:11
PROVIDERS: ADMIT Internal Medicine Infectious Disease; ATTEND Family Medicine

== ENCOUNTER 2016-12-13 08:07 | Inpatient (IN) ==
[2016-12-13] MEDS ORDERED: SODIUM CHLORIDE 0.9% 1,000 ML IV STA (08:36)
--- NOTE | 2016-12-13 08:40 | EKG Report ---
Stationary ECG Study [facility] ER Test Date: 12/13/2016 8:33:49 AM Pat Name: JOSE FRANK Department: Room: Gender: F [employer] Operator: : [id number] Requested by: Aryan uYn Order Number: [id number] Reading MD: KRISTEL SANDS Intervals Douglas Rate: 86 P: 999 MO: 0 QRS: -4 QRSD: 86 T: -21 QT: 373 QTc: 417 Interpretive Statements ATRIAL FIBRILLATION VOLTAGE CRITERIA FOR LVH Electronically Signed On 12-13-16 17:01:45 CDT by KRISTEL SANDS [email or web address]
--- NOTE | 2016-12-13 08:45 | CT Report ---
Referring physician: Aryan Moreira Exam: CT brain without contrast Date: 12/13/2016 Comparison: 12/05/2016 Reason: Alteration of consciousness Technique: Axial images of the head were obtained without the use of contrast. Total DLP was 1053.4 mGy*cm. Findings: No hydrocephalus or midline shift is present. Progressive ill-defined hypodensities noted in the right parieto-occipital location. No evidence of hemorrhage, mass, or extracerebral collection. Persistent atrophy and diffuse cerebral hypodensities and arterial calcifications. The osseous structures appear intact. The mastoid air cells and visualized paranasal sinuses are clear. 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 MRI may be helpful for further evaluation of this finding. The CT exam was performed using one or more of the following dose reduction techniques: Automated exposure control and adjustment of the mA and/or kV according to patient size. PROCEDURE INTERPRETED AT [facility] DEPARTMENT OF RADIOLOGY Final Report Signed by: Dr. Suze Guerrero
[2016-12-13] MEDS ORDERED: CLINDAMYCIN INJ 600 MG in PREMIX 1 EACH IV STA (08:47)
[2016-12-13] MEDS ORDERED: LEVOFLOXACIN INJ 500 MG in PREMIX 1 EACH IV STA (08:50)
--- NOTE | 2016-12-13 09:00 | XRay Report ---
Portable chest Date: 12/13/2016 Clinical history: Cardiomegaly Comparison: 01/05/2016 Technique: Portable AP sitting chest Findings: Persistent cardiomegaly with prior median sternotomy and uncoiling of the aorta. Chronic scarring in the lungs with minimally progressive diffuse parenchymal findings. Persistent blunting of the left costophrenic angle. Stable mediastinum and osseous structures. Postoperative findings in the right shoulder. Carotid artery calcifications. Impression: Status post median sternotomy with chronic scarring. Progressive edema/infiltration/atelectasis. Carotid artery calcification noted. PROCEDURE INTERPRETED AT [facility] DEPARTMENT OF RADIOLOGY Final Report Signed by: Dr. Suze Guerrero
--- NOTE | 2016-12-13 09:01 | Emergency Department Note ---
David Vu Hilary, am scribing for, and in the presence of, Aryan Moreira MD 08: 55. Lillie Vu James D, MD, personally performed the services described in this documentation, ascribed by Stacie Hernandez in my presence, and it is both accurate and complete [id number] . Arrival - Arrival Chief Complaint: Altered Mental Status ED Nursing Triage Note: pt fell last week and was seen here then. pt started having alt loc about midnight. pt is not moving her lt side, lt facial droop and slurred speech Mode of Arrival: Stretcher Limitations: No Limitations Source: Family (Son), RN Notes Reviewed Time Seen by Provider: 12/13/16 08:22 - History of Present Illness HPI Narrative: Pt is a 89 y/o white female brought to the ED via EMS with c/o AMS. Pts son is in the room and gives the history. He states that this morning she was not awake or alert and the last known well time was 1600 last night. Pts son figured she was just resting, but it was not normal for her to still be sleeping by the time he got up, when he went to check on her he noticed she was gurgling and when he sat her up she vomited bile. In the room Pt is not talking or moving. Pt is not eligible for TPA due to the amount of time since incident. Onset (ago): hour(s) Allergies/Adverse Reactions: Allergies Allergy/AdvReac Type Severity Reaction Status Date / Time promethazine Allergy Unknown/Unable Verified 12/05/16 09:17 to obtain cefdinir AdvReac Unknown/Unable Verified 12/05/16 09:17 to obtain Home Medications: Home Medications Medication Instructions Recorded Confirmed Type Digoxin [Digox] 125 mcg PO DAILY 03/06/15 12/05/16 History Levothyroxine Sodium 50 mcg PO DAILY 03/06/15 12/05/16 History Meclizine HCl 25 mg PO BID 03/06/15 12/05/16 History Metoprolol Tartrate 50 mg PO DAILY 03/06/15 12/05/16 History Omeprazole 40 mg PO DAILY 03/06/15 12/05/16 History Potassium Chloride 10 meq PO DAILY 03/06/15 12/05/16 History Warfarin Sodium 4 mg PO MOWEFR 03/06/15 12/05/16 History cloNIDine TAB [Catapres Tab] 0.1 mg PO BID tablet 03/11/15 12/05/16 Rx hydroCHLOROthiazide 12.5 mg PO DAILY #60 capsule 03/11/15 12/05/16 Rx [Hydrochlorothiazide] Acetaminophen/Caff/Dihydrocod 1 each PO DAILY 01/05/16 12/05/16 History [Trezix 16-320.5-30 mg Capsule] Tramadol HCl [Tramadol Tab] 50 mg PO BID PRN 01/05/16 12/05/16 History Acetaminophen Tab [Tylenol Tab] 650 mg PO DAILY PRN 01/06/16 12/05/16 History Albuterol Sulfate [Albuterol Neb] 2.5 mg RESP TX TID 01/06/16 12/05/16 History HYDROcodone/ACETAMIN 5-325 [[place] 1 tablet PO BID PRN 12/05/16 12/05/16 History 5-325] Warfarin Sodium 3 mg PO SUTUTHSA 12/05/16 12/05/16 History Sulfameth/Trimeth 800-160 Tab 1 tablet PO BID #6 tablet 12/08/16 Rx [Bactrim DS Tab] Review of System - Review of System ROS unobtainable: due to mental status 12 point system: reviewed and no additional remarkable complaints except as stated - Review of System Constitutional: Absent: fever Medical,Surgical,& Family Hx - Medical History Cardio: History of: CHF, CAD, Hypertension, [place] Psychological: History of: Depression Neurology: History of: Vertigo HEENT: History of: Ear Problem Endocrine: History of: Dyslipidemia Respiratory: History of: COPD, Pneumonia Genitourinary: History of: Bladder Problem, Problems (incontinence) Gastrointestinal: History of: GERD Musculoskeletal: History of: Back/Neck Problems, Osteoporosis - Surgical History Cardiac Surgeries: Sugical HX of: Cardiac Catheterization, Cardiac Surgery (CABG ) Neurologic Surgeries: Patient denies: Neurologic Surgery HEENT Surgeries: Surgical HX of: Eye Surgery (Cataracts removed) Abdominal Surgeries: Surgical HX of: Cholecystectomy, Colonoscopy, EGD Reproductive Surgeries: Surgical HX of;: Hysterectomy Patient denies;: Genitourinary Surgery - Family History Family History: Reports;: Family Cancer (Aunt), Family Diabetes (Uncle), Family Heart Disease (Sister) - Social History Smoking Status: Never smoker Frequency of Alcohol Use: Unknown Type of Drug Use: None Exam Physical Examination: GENERAL: This is a well-nourished, well-developed in no apparent distress. VITAL SIGNS: Temperature: 96.7 Pulse: 105 Respiratory: 20 Blood Pressure: 174 /110 O2Sat: 89 HEENT: Head is normocephalic and atraumatic. Gaze preferences to the right . Oropharynx is benign with moist mucous membranes. Gag is present. Slightly dry mucous membranes NECK: Neck is soft and supple without tenderness. There are no masses. There is no lymphadenopathy. LUNGS: Lungs are clear to auscultation bilaterally. Chest rises symmetrically. There is minimal chest wall tenderness. CV: Heart is irregularly irregular without murmurs, rubs, or gallops. ABDOMEN: Abdomen is soft, non-tender to palpation. There are no abnormal masses palpated. There is no organomegaly. Bowel sounds are present and active. SKIN: Skin is warm and dry. No rash. Poor turgor EXTREMITIES: Patient has minimal movement in right extremities but 0/5 movement on left side . There is no pedal edema. NEUROLOGIC: Awake, alert, nonverbal. Gaze preference to the right. Patient moves right arm and right leg on command. There is no movement in her left arm. She has minimal movement in her left lower extremity. PSYCHIATRIC: Nonverbal Vital Signs: Vital Signs Temperature 96.7 F L 12/13/16 08:14 Pulse Rate 105 H 12/13/16 08:14 Respiratory Rate 20 12/13/16 08:15 Blood Pressure 174/110 12/13/16 08:14 O2 Sat by Pulse Oximetry 89 L 12/13/16 08:14 Course Course Narrative: Patient is DNR according to the family. - Consultations Consultation #1: Discussed with hospitalist. Patient will be admitted to their service. Time: 09:01 Results - Labs CBC & BMP: 12/13/16 09:35 Lab Results: I have reviewed the patients labs Labs: Laboratory Tests 12/13/16 09:35 WBC 13.6 H RBC 4.91 Hgb 14.2 Hct 43.4 MPV 9.2 L Neut % (Auto) 85.0 H Lymph % (Auto) 9.8 L Neut # (Auto) 11.6 H Lymph # (Auto) 1.3 L - EKG EKG results: interpreted by ERMD - Impressions Atrial fibrillation with a rate of 86, voltage for LVH, nonspecific ST-T wave changes, slight left axis deviation - Diagnostic Findings Procedure: CT: image reviewed by me, report reviewed by me (CT head reveals large right parietal occipital infarct which is ischemic. There is no hemorrhage.) Disposition Clinical Impression: Large right parietal occipital infarct, Atrial fib/flutter, transient Case discussed with: patient, patient's family
[2016-12-13 09:39] LABS: Basophils % 0.2 % (0.0-0.8); Eosinophils # 0.1 10*3/uL (0.0-0.87); Eosinophils % 0.7 % (0.00-10.9); Hematocrit 43.4 VOL% (35.7-47.0); Hemoglobin 14.2 GM/DL (12.0-16.0); Immature Granulocytes % 0.6 %; Immature Granulocytes Absolute 0.08 #; Lymphocytes # 1.3 10*3/uL (1.4-4.0); Lymphocytes % 9.8 % (21.3-54.2); Mean Corpuscular HGB Conc 32.7 GM/DL (32-36); Mean Corpuscular Hemoglobin 29 PG (27-34); Mean Corpuscular Volume 88.4 FL (87-102); Mean Platelet Volume 9.2 FL (9.6-12.0); Monocytes # 0.5 10*3/uL (0.11-0.8); Monocytes % 3.7 % (1.7-12.7); Neutrophils # 11.6 10*3/uL (1.4-7.4); Platelet Count 391 T/CUMM (130-400); Red Blood Count 4.91 MC/CUMM (3.8-5.5); Red Cell Distribution Width 15.4 % (9.3-17.3); White Blood Count 13.6 T/CUMM (4-12)
[2016-12-13] MEDS ORDERED: LEVOFLOXACIN INJ 150 ML IV ONE (09:47)
[2016-12-13 09:53] LABS: INR 1.3; PT Patient Result 13.6 SECS; Partial Thromboplastin Time 30.9 SECS (0-40)
[2016-12-13 10:04] LABS: Alanine Aminotransferase 14 U/L (13-56); Albumin 3.5 G/DL (3.4-5.0); Alkaline Phosphatase 74 U/L (45-117); Aspartate Amino Transferase 19 U/L (0-37); Blood Urea Nitrogen 17 MG/DL (7-18); Calcium 9.2 MG/DL (8.5-10.1); Glucose 152 MG/DL (74-106); Osmolality,Calculated 264.8 MOS/KG (273-304); Sodium 130 MMOL/L (136-145); Total Protein 7.9 G/DL (6.4-8.3)
--- NOTE | 2016-12-13 10:33 | Hospitalist History & Physical ---
<Shelly Mccain - Last Filed: 12/13/16 10:25> Assessment and Plan - Time spent with patient Time spent with patient: Greater than 30 minutes (1) Acute right arterial ischemic stroke, MCA (middle cerebral artery) Status: Acute Assessment and plan: 89-year-old white female with history of CAD, A. fib on Coumadin, hypertension, recent kyphoplasty admitted by hospitalist service with large right parietal occipital stroke. Patient is not responsive and is a DNR. She will be admitted to the floor and placed on comfort measures. Son is requesting no tubes of any kind. She does have a Hayes in place already. Dr. Mishra has seen and examined patient and further recommendations to follow. Current Visit: Yes (2) Hypertension Status: Chronic Current Visit: No Qualifiers: Hypertension type: essential hypertension Qualified Code(s): I10 - Essential (primary) hypertension (3) Atrial fibrillation Status: Chronic Current Visit: No Qualifiers: Atrial fibrillation type: chronic Qualified Code(s): I48.2 - Chronic atrial fibrillation History of Present Illness Chief complaint: Altered mental status History of present illness: Ms. Carpenter is a 89 year old white female with history of hypertension, CAD status post CABG, and A. fib on Coumadin presented to the ED by ambulance with altered mental status. Patient's son states that he last saw her at 1600 yesterday and everything was fine. When he came to her home this morning patient she was not responsive and gurgling and then vomited bile. Patient had recent admission in early November with back pain and a UTI. Her Coumadin had been held for kyphoplasty by Dr. Wynne that took place on 12/07/2016. Upon discharge patient's Coumadin was restarted at her home dosage. Today patient has right- sided gaze and is unresponsive. She will move her right arm and right leg minimally with no left-sided movement. CT scan of the head is showing a large right parietal occipital stroke. Patient's INR subtherapeutic at 1.3. Patient is a DNR per son. Patient's history came from the son that is present. Patient 's case was discussed with Dr. Moreira the ED physician and Dr. Mishra the admitting hospitalist, and it was agreed patient would be admitted for comfort measures. Home Medications Medication Instructions Recorded Confirmed Type Digoxin [Digox] 125 mcg PO DAILY 03/06/15 12/05/16 History Levothyroxine Sodium 50 mcg PO DAILY 03/06/15 12/05/16 History Meclizine HCl 25 mg PO BID 03/06/15 12/05/16 History Metoprolol Tartrate 50 mg PO DAILY 03/06/15 12/05/16 History Omeprazole 40 mg PO DAILY 03/06/15 12/05/16 History Potassium Chloride 10 meq PO DAILY 03/06/15 12/05/16 History Warfarin Sodium 4 mg PO MOWEFR 03/06/15 12/05/16 History cloNIDine TAB [Catapres Tab] 0.1 mg PO BID tablet 03/11/15 12/05/16 Rx hydroCHLOROthiazide 12.5 mg PO DAILY #60 capsule 03/11/15 12/05/16 Rx [Hydrochlorothiazide] Acetaminophen/Caff/Dihydrocod 1 each PO DAILY 01/05/16 12/05/16 History [Trezix 16-320.5-30 mg Capsule] Tramadol HCl [Tramadol Tab] 50 mg PO BID PRN 01/05/16 12/05/16 History Acetaminophen Tab [Tylenol Tab] 650 mg PO DAILY PRN 01/06/16 12/05/16 History Albuterol Sulfate [Albuterol Neb] 2.5 mg RESP TX TID 01/06/16 12/05/16 History HYDROcodone/ACETAMIN 5-325 [[place] 1 tablet PO BID PRN 12/05/16 12/05/16 History 5-325] Warfarin Sodium 3 mg PO SUTUTHSA 12/05/16 12/05/16 History Sulfameth/Trimeth 800-160 Tab 1 tablet PO BID #6 tablet 12/08/16 Rx [Bactrim DS Tab] Allergies Allergy/AdvReac Type Severity Reaction Status Date / Time promethazine Allergy Unknown/Unable Verified 12/05/16 09:17 to obtain cefdinir AdvReac Unknown/Unable Verified 12/05/16 09:17 to obtain Medical,Surgical,& Family Hx - Medical History Cardio: History of: CHF, CAD, Hypertension, SC Psychological: History of: Depression Neurology: History of: Vertigo HEENT: History of: Ear Problem Endocrine: History of: Dyslipidemia Respiratory: History of: COPD, Pneumonia Genitourinary: History of: Bladder Problem, Problems (incontinence) Gastrointestinal: History of: GERD Musculoskeletal: History of: Back/Neck Problems, Osteoporosis - Surgical History Cardiac Surgeries: Sugical HX of: Cardiac Catheterization, Cardiac Surgery (CABG ) Neurologic Surgeries: Patient denies: Neurologic Surgery HEENT Surgeries: Surgical HX of: Eye Surgery (Cataracts removed) Abdominal Surgeries: Surgical HX of: Cholecystectomy, Colonoscopy, EGD Reproductive Surgeries: Surgical HX of;: Hysterectomy Patient denies;: Genitourinary Surgery - Family History Family History: Reports;: Family Cancer (Aunt), Family Diabetes (Uncle), Family Heart Disease (Sister) - Social History Smoking Status: Never smoker Frequency of Alcohol Use: Unknown Type of Drug Use: None ROS unobtainable: due to mental status Exam - Constitutional Vitals: Period Temp Pulse Resp BP Sys/Sanchez Pulse Ox Last 24 Hr 98.1 F 95 38 151/87 92 Exam: Constitutional System: No distress. [No] tremulousness. Head: Normocephalic, atraumatic. Ears, Nose and Throat System: No evidence of Otitis or Mastoiditis. No epistaxis or discharge Eyes System: Pupils equal, round, and reactive. Right-sided gaze, asymmetric Neck: Supple, without adenopathy, [No] jugular venous distention. No thyromegaly , neck mass, or prior surgery apparent. Respiratory System: Chest [clear] to auscultation. Cardiovascular System: Heart with irregularly irregular rate and rhythm. [No] murmur. GI System: Abdomen [soft], [non]tender. [Normo]active bowel sounds present. Musculoskeletal System: limbs with [no] pedal edema. [Full] distal pulses. Minimal movement of right side, no movement on left Neurological System: Will not follow commands Psychiatric System: Unobtainable, nonverbal Results - Labs CBC & BMP: 12/13/16 09:35 12/13/16 09:35 Lab Results: I have reviewed the past 24 hour labs - EKG EKG shows: atrial fibrillation - Diagnostic Findings Procedure: Chest x-ray: report reviewed by me (Status post median sternotomy with chronic scarring. Progressive edema/infiltration/atelectasis), CT: report reviewed by me (CT the head with recent large ischemic infarct in the right parieto-occipital location) <Jeffry Mishra - Last Filed: 12/13/16 10:52> History of Present Illness History of present illness: Ms. Carpenter is a 89 year old female Exam - Constitutional Vitals: Period Temp Pulse Resp BP Sys/Sanchez Pulse Ox Last 24 Hr 97.1 F-98.1 F 95-109 22-38 151-174/74-87 88-92 Results - Labs CBC & BMP: 12/13/16 09:35 12/13/16 09:35
[2016-12-13 11:24] LABS: Risk Ratio 3.79; VLDL CHOLESTEROL 25.4 MG/DL
[2016-12-13] MEDS: SODIUM CHLORIDE 0.9% 1,000 ML IV SCH (12:09)
[2016-12-13] MEDS ORDERED: ATROPINE 0.4 MG/1 ML VIAL IV PRN (14:22)
[2016-12-13] MEDS: MORPHINE 2 MG/1 ML SYRINGE IV PRN ×2 (14:38→22:04)
[2016-12-14] MEDS: MORPHINE 2 MG/1 ML SYRINGE IV PRN ×4 (01:00→21:22)
[2016-12-14] MEDS: SODIUM CHLORIDE 0.9% 1,000 ML IV SCH (03:10)
[2016-12-14 05:47] LABS: Basophils # 0.1 10*3/uL (0.0-0.2); Basophils % 0.3 % (0.0-0.8); Hemoglobin 13.1 GM/DL (12.0-16.0); Immature Granulocytes % 0.8 %; Immature Granulocytes Absolute 0.17 #; Lymphocytes % 4.6 % (21.3-54.2); Mean Corpuscular HGB Conc 33.6 GM/DL (32-36); Mean Corpuscular Hemoglobin 29 PG (27-34); Mean Corpuscular Volume 86.9 FL (87-102); Mean Platelet Volume 9.6 FL (9.6-12.0); Monocytes # 0.7 10*3/uL (0.11-0.8); Monocytes % 3.1 % (1.7-12.7); Neutrophils # 19.7 10*3/uL (1.4-7.4); Neutrophils % 91.2 % (38.7-73.9); Platelet Count 370 T/CUMM (130-400); Red Blood Count 4.49 MC/CUMM (3.8-5.5); Red Cell Distribution Width 15.8 % (9.3-17.3); White Blood Count 21.5 T/CUMM (4-12)
[2016-12-14 06:12] LABS: Band Neutrophils 12 % (0-10); Lymphocytes 6 % (20-55); Segmented Neutrophils 81 % (50-85); Total Cells Counted 100
[2016-12-14 06:15] LABS: Hypochromasia 1+; Microcytosis Slight; Platelet Estimate Normal
[2016-12-14 06:22] LABS: Calcium 8.8 MG/DL (8.5-10.1); Osmolality,Calculated 267.4 MOS/KG (273-304); Potassium 4.8 MMOL/L (3.5-5.1); Troponin I Only 0.032 NG/ML (0.00-0.045)
--- NOTE | 2016-12-14 08:29 | Physician Query Form ---
CLICK EDIT DOCUMENT TO SELECT QUERY ANSWER --> OK --> SIGN PROVIDERS: Make your selection(s) from the choices in EACH section by typing an "x" and enter comments in the comment section. Please use your independent medical judgment in providing your response. This request does not imply that any particular answer is desired or expected. CLINICAL INDICATORS: (Providers should not edit this section) The medical record indicates that the patient was admitted with a Large Parietal Occipital Infarct, "Progressive edema/infiltration/atelectasis", WBC 21.5, 12 Bands, "gurgling", and the patient was on Antibiotics. Community Acquired and Healthcare Acquired are both unspecified terms and require further specificity. Based on the above, could you please clarify further specificity regarding the type of pneumonia you are treating (even if specific organism may not be known) ? ( X) Aspiration pneumonia ( ) Gram negative pneumonia ( ) Gram positive pneumonia ( ) Bacterial pneumonia due to, please specify organism (if known): ( ) Pneumonia with Influenza ( ) Viral pneumonia ( ) Post procedural ( ) HIV associated pneumonia ( ) Radiation Pneumonitis ( ) Atelectasis only ( ) Pneumonia due to, please specify: ( ) Clinically unable to determine ( ) Other, please specify: COMMENTS: PLEASE ALSO DOCUMENT RESPONSE IN PROGRESS NOTES AND/OR DISCHARGE SUMMARY Use of terms such as suspected, likely, or probable (associated with a specific diagnosis that is being evaluated, monitored, or treated as if it exists) are acceptable and can be restated in the discharge summary if not ruled out. MTDD
--- NOTE | 2016-12-14 11:31 | Hospitalist Progress Note ---
Assessment and Plan (1) Acute right arterial ischemic stroke, MCA (middle cerebral artery) Status: Acute Assessment and plan: The patient is admitted the hospital with a new stroke of the right parieto- occipital brain. The patient is hemodynamically stable but I am able to take hydration or food by mouth. The patient's family states that the patient's prior stated wishes were to avoid feeding tube. We will continue comfort care and supportive measures. Current Visit: Yes (2) Atrial fibrillation Status: Chronic Current Visit: No Qualifiers: Atrial fibrillation type: chronic Qualified Code(s): I48.2 - Chronic atrial fibrillation Hospitalist: Subjective Interval history: The patient had increased congestion yesterday evening. We increased her anti- symptom medications and she had a comfortable night. Exam - Constitutional Vitals: Period Temp Pulse Resp BP Sys/Sanchez Pulse Ox Last 24 Hr 98.7 F-98.9 F 122-128 20-34 130-145/84-98 95-95 General appearance: mild distress - Neck Neck exam: Present: normal inspection - Respiratory Respiratory exam: Present: other (Some upper airway congestion) - Neurological Exam Neurological exam: Present: alert, other (Dense left hemiparesis) Results - Labs CBC & BMP: 12/14/16 04:54 12/14/16 04:54 Lab Results: I have reviewed the past 24 hour labs Quality Measures - VTE Contraindication to Pharmacological VTE Prophylaxis: Already on Theraputic Agent , No Prophylaxis Needed - Stroke Contraindication No Antithrombotic By Day Two: Advanced Age
[2016-12-14] MEDS: DESITIN 4OZ/NYSTATIN 15 GRAM MIXTURE PASTE TOP SCH ×2 (17:00→21:28)
[2016-12-15] MEDS: MORPHINE 2 MG/1 ML SYRINGE IV PRN ×4 (00:40→23:25)
[2016-12-15] MEDS: DESITIN 4OZ/NYSTATIN 15 GRAM MIXTURE PASTE TOP SCH ×2 (09:50→20:08)
[2016-12-15] MEDS: LORazepam 2 MG/1 ML VIAL IV PRN ×2 (11:34→20:08)
--- NOTE | 2016-12-15 12:01 | Hospitalist Progress Note ---
Assessment and Plan - Time spent with patient Time spent with patient: Less than 30 minutes (1) Acute right arterial ischemic stroke, MCA (middle cerebral artery) Status: Acute Assessment and plan: 89-year-old white female with history of CAD, A. fib on Coumadin, hypertension, recent kyphoplasty admitted by hospitalist service with large right parietal occipital stroke. Patient is not responsive and is a DNR. She will be admitted to the floor and placed on comfort measures. Son is requesting no tubes of any kind. She does have a Hayes in place already. Dr. Mishra has seen and examined patient and further recommendations to follow. 12/15/16 patient continues to be on comfort measures. She is unresponsive. she is now becoming tachycardic with hypertension. Her IV fluids have been stopped along with lab draws. Patient has Ativan and morphine for comfort. Patient's case has been discussed with Dr. Mishra and further recommendations to follow. Current Visit: Yes (2) Hypertension Status: Chronic Current Visit: No Qualifiers: Hypertension type: essential hypertension Qualified Code(s): I10 - Essential (primary) hypertension (3) Atrial fibrillation Status: Chronic Current Visit: No Qualifiers: Atrial fibrillation type: chronic Qualified Code(s): I48.2 - Chronic atrial fibrillation Hospitalist: Subjective Interval history: There has been no changes. Patient lying in bed and unresponsive. Sister in the room states she will move her right arm and fidget periodically. She will not open her eyes and not speak or respond to voice or pain. Exam - Constitutional Vitals: Period Temp Pulse Resp BP Sys/Sanchez Pulse Ox Last 24 Hr 96.4 F-99.2 F 95-125 16-25 147-188/67-86 92-98 Exam: 89-year-old white female, no distress Chest clear CV tachycardia but regular Abdomen soft Extremities no edema Results - Labs CBC & BMP: 12/14/16 04:54 12/14/16 04:54 Lab Results: I have reviewed the past 24 hour labs Quality Measures - VTE Contraindication to Pharmacological VTE Prophylaxis: Already on Theraputic Agent , No Prophylaxis Needed - Stroke Contraindication No Antithrombotic By Day Two: Advanced Age Specialty Discharge - Follow Up or Referrals
[2016-12-16] MEDS: MORPHINE 2 MG/1 ML SYRINGE IV PRN (04:52)
[2016-12-16 07:36] VITALS: BP 163/83
--- NOTE | 2016-12-16 07:58 | Discharge Summary ---
Hospital Course - Hospital Course Hospital Course: The patient was admitted to the hospital with large stroke which has an ischemic area including the right posterior cerebral artery distribution involving the right occipital and parietal lobes. The patient's prior stated wishes were to avoid heroic care and specifically to avoid feeding tube. Her son and sister were present with the patient at the bedside and were in agreement that this was her wish. The patient is unable to swallow safely. The patient is arousable but lethargic. The patient has left hemiparesis. The patient is mute. The patient's family has decided to take her home with hospice. I coordinate care with the case hardener and we are arranging transportation and home hospice with stay home. On the date of discharge, the patient remains lethargic with left hemiparesis and aphasia. She has mild upper airway congestion. 36 minutes were required for discharge arrangements and preparing appropriate documents and for coordinating care with the manager transplant and patient's family. - Time spent with patient Time with patient DS: Greater than 30 minutes Diagnosis - Discharge Diagnosis (1) Acute right arterial ischemic stroke, MCA (middle cerebral artery) Status: Acute (2) Atrial fibrillation Status: Chronic Specialty Discharge - Follow Up or Referrals Discharge Plan - Discharge Data Disposition: Hospice - Home Condition at Discharge: Guarded Discharge Diet: other (Ice chips and small amounts of liquid as decided) - Discharge Medications New Atropine Inj 0.5 mg IV PRN PRN #0 vial PRN Reason: congestion Discontinued Warfarin Sodium 4 mg PO MOWEFR Potassium Chloride 10 meq PO DAILY Omeprazole 40 mg PO DAILY Metoprolol Tartrate 25 mg PO DAILY Meclizine HCl 25 mg PO BID PRN PRN Reason: Dizziness Levothyroxine Sodium 50 mcg PO DAILY Digoxin [Digox] 125 mcg PO DAILY cloNIDine TAB [Catapres Tab] 0.1 mg PO BID tablet hydroCHLOROthiazide [Hydrochlorothiazide] 12.5 mg PO DAILY #60 capsule Acetaminophen/Caff/Dihydrocod [Trezix 16-320.5-30 mg Capsule] 1 each PO DAILY Tramadol HCl [Tramadol Tab] 50 mg PO BID PRN PRN Reason: Pain Albuterol Sulfate [Albuterol Neb] 2.5 mg RESP TX TID Acetaminophen Tab [Tylenol Tab] 650 mg PO DAILY PRN PRN Reason: Pain HYDROcodone/ACETAMIN 5-325 [[place] 5-325] 1 tablet PO BID PRN PRN Reason: Pain Sulfameth/Trimeth 800-160 Tab [Bactrim DS Tab] 1 tablet PO BID #6 tablet Warfarin Sodium 3 mg PO SUTUTHSA - Follow Up or Referral - Forms/Instructions Instructions: Ischemic Stroke (DC) Exam - Constitutional Vitals: Period Temp Pulse Resp BP Sys/Sanchez Pulse Ox Last 24 Hr 96.8 F-98.6 F 118-129 16-32 163-226/83-140 91-96 Discharge Results Labs on day of discharge: Preliminary micro results at discharge 12/13/16 09:35 Blood Culture - Preliminary Blood No growth at 1 day 12/13/16 09:35 Blood Culture - Preliminary Blood No growth at 1 day DS: Provider Date of admission: 12/13/16 09:09 Primary care physician: Kraig Donovan MD Attending physician on admission: Jeffry Mishra MD Consults: 12/13/16 10:55 Consult to Physical Therapy [CONS] Routine Reason for Physical Therapy: Evaluate and Treat Consult Comment: stroke 12/15/16 14:57 Consult to Case Mgmt/Social Srvs [CONS] Routine Reason for Case Mgmt/Social Srvs: Hospice Referral Discharging clinician: Jeffry Mishra MD
== END 2016-12-16 11:25 | disposition hospice, home (50) | DRG 64 ==
LOC: EDUNIT# → EDBD → N.ED 08:07 → N.EDINP 09:09 → N.4E 10:27
PROVIDERS: ADMIT Internal Medicine; ATTEND Internal Medicine